=== PATIENT | male | born 1995 | race Caucasian/White ===

== ENCOUNTER 2021-08-14 14:29 | Emergency (ER) | payer OTHER, BC, SELFPAY ==
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
[2021-08-14 14:36] VITALS: BP 130/64; PULSE 100; O2SAT 98
[2021-08-14 14:41] VITALS: BP 122/81; PULSE 80; RESP 19; TEMP 36.6; O2SAT 98; BMI 28.8
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
== END 2021-08-14 16:11 | disposition home or self-care (01) ==
PROVIDERS: Emergency Provider Emergency Medicine Emergency Medical Services; PCP Internal Medicine
DX: S06.0X0A Concussion without loss of consciousness, initial encounter (principal); V43.52XA Car driver injured in collision with other type car in traffic accident, initial encounter; Y93.89 Activity, other specified; Y92.414 Local residential or business street as the place of occurrence of the external cause; Y99.8 Other external cause status
CPT/HCPCS: 70450; 72040; 72070; 72100; 72220; 99283; 99284

== ENCOUNTER 2023-04-15 11:35 | Emergency (ER) | payer BC, SELFPAY ==
--- NOTE | ~2023-04-15 | XR_ITS ---
EXAMINATION: XR KNEE, RIGHT CLINICAL INFORMATION: Knee pain after fall COMPARISON: None available. TECHNIQUE: Four views of the right knee. FINDINGS: No fracture or joint effusion. Alignment is anatomic. Joint spaces are maintained. No abnormal soft tissue calcification. XR/XR knee RT 3V IMPRESSION: Normal right knee.
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
[2023-04-15 11:44] VITALS: BP 133/83; PULSE 73; RESP 16; TEMP 36.6; O2SAT 97; BMI 34.1
--- NOTE | 2023-04-15 13:14 | ED.LOWEXIN ---
HPI - Extremity Injury (Lower) General Chief Complaint: Extremity Injury, Lower Stated Complaint: R knee injury Time Seen by Provider: 04/15/23 12:17 Related Data Allergies Allergy/AdvReac Type Severity Reaction Status Date / Time Seasonal allergies Allergy Unknown Unknown Uncoded 04/15/23 11:43 PMFSH Past Medical History Medical History Scoliosis Social History Social History Advance Directives: No Advance Directives Information Provided: No Physical Exam Vital Signs: Vital Signs: Last Vital Signs Temp 97.8 F 04/15/23 11:44 Pulse 73 04/15/23 11:44 Resp 16 04/15/23 11:44 BP 133/83 04/15/23 11:44 Pulse Ox 97 04/15/23 11:44 O2 Del Method Room Air 04/15/23 11:44 BMI result Body Mass Index 34.1 Critical Care Time Critical Care Time Critical Care Time: No Discharge Plan Discharge Clinical Impression: Right knee sprain Patient Disposition: Home, Self-Care Instructions: Knee Sprain (ED) Additional Instructions: The x-ray of your right knee did not show any fracture or dislocation. You likely have a musculoskeletal sprain/strain. Your given a dose of pain medication in the emergency department today. You are provided with an Torito wrap today to help with compression. You may take Tylenol ibuprofen as needed for discomfort. Follow up with your primary care doctor as needed. This symptoms persist or worsen please return to the emergency department. The case of an emergency call 911. Referrals: Alexis Ronquillo MD [Primary Care Provider] - Stand Alone Forms: Work/School Release Interventions: ED Discharge Assessment Last Done: 04/15/23 14:13 Discharge Date/Time: 04/15/23 14:13
== END 2023-04-15 14:13 | disposition home or self-care (01) ==
PROVIDERS: Emergency Provider Emergency Medicine; PCP Internal Medicine
DX: S83.91XA Sprain of unspecified site of right knee, initial encounter (principal); W01.0XXA Fall on same level from slipping, tripping and stumbling without subsequent striking against object, initial encounter; Y93.89 Activity, other specified; Y92.511 Restaurant or cafe as the place of occurrence of the external cause; Y99.9 Unspecified external cause status
CPT/HCPCS: 73562; 99282; 99283

== ENCOUNTER 2024-07-11 18:53 | Emergency (ER) | payer MEDICAID, SELFPAY ==
--- NOTE | 2024-07-11 19:25 | ED.GENADULT ---
HPI - General Adult General Stated complaint: leg pain Related Data Allergies Allergy/AdvReac Type Severity Reaction Status Date / Time Seasonal allergies Allergy Unknown Unknown Uncoded 04/15/23 11:43 [facility] Past Medical History Medical History Scoliosis Social History Social History Advance Directives: No Advance Directives Information Provided: No Discharge Plan Discharge Patient Disposition: Left Without Being Seen Interventions: LWBS Worksheet Last Done: 07/11/24 19:53 Discharge Date/Time: 07/11/24 19:53
--- OUTSIDE RECORDS SUMMARY | 2024-07-11 19:46 | XMS_ITS | Clinical Summary ---
Author Organization [facility] Address [address] [place] [address] Phone Care Team Providers Care Auto Body Repairman Name Role Phone Unavailable Primary Care Provider Unavailabl e Immunizations Immunization Administration Dates Next Due DTP 02/01/1995,1994,1994 DTaP 5 07/01/1999,07/18/1996 H1N1 06/05/2009 HPV, Quadrivalent 05/16/2013 Hep B, ped/adol 02/01/1995,1994,1994 Hib (PRP-T) 11/13/1995, 5,1994,09/30 IPV 07/01/1999, 5,1994,09/30 Influenza, injectable, trivalent 06/05/2009,03/29 Influenza, intranasal, quadrivalent 05/02/2013 MMR 07/01/1999,11/13/1995 Meningococcal Conj (Menactra) MCV4P 02/04/2008 Td (adult) (MBL), 2 Lf tetan us toxoid, PF, adsorbed 04/27/2007 Tdap 11/01/2011 Varicella 02/04/2008,08/27/1995 Family History Relation Name Status Comments Brother Alive Brother: Alive and well, Asthma Father Alive Father: Alive a nd well Maternal Grandfather Materna l grandfather: Sudden /RI under age 55 Maternal Grandmother Materna l grandmother: Diabetes mellitus Mother Mother: neuro f ibromytosis Other Family history of *Dental caries, Family history of *CVA/Stroke, Family history of *Heart Disease, Family history of *Sudden /RI under 55 Paternal Grandfather Paterna l grandfather: MVA, Paternal Grandmother Paterna l grandmother: Heart disease, Sister Alive Sister: Alive a nd well Social History Tobacco Use Types Packs/Day Years Used Date Smoking Tobacco: Never Comments:Never smoker Sex and Gender Information Value Date Recorded Sex Assigned at Not on file Legal Sex Male 4:43 PM EDT Gender Identity Not on file Sexual Orientation Not on file Last Filed Vital Signs Vital Sign Reading Time Taken Comments Blood Pressure 113/72 07/26/2015 12:00 AM EST Pulse 80 07/26/2015 12:00 AM EST Temperature 37.1 ??C (98.8 ??F) 07/26/2015 1 2:00 AM EST Respiratory Rate - - Oxygen Saturation - - Inhaled Oxygen Concentration - - Weight 81.1 kg (178 lb 12.8 oz) 016 12:00 AM EST Height 194.9 cm (6' 4.75 ) 07/26/2015 1 2:00 AM EST Body Mass Index 21.34 07/26/2015 12:00 AM EST Plan of Treatment Health Maintenance Due Date Last Done Comments HPV Vaccines (2 - Male 3-dose series) 06/13/2013 05/16/2013 DTaP,Tdap,and Td Vaccines (7 - Td or Tdap) 10/31/2021 11/01/2011, 04/27/2007, 07/01/1999, Additional history exists Influenza Vaccines (#1) 2023 05/02/20 13, 06/05/2009, 04/09/2007 COVID-19 Vaccine ( season) 2024 Hepatitis B Vaccines Completed 02/01/1995, 1994, 1994 HIB Vaccines Completed 11/13/1995, 10/1994, 1994, Additional history exists IPV Vaccines Completed 07/01/1999, 10/1994, 1994, Additional history exists MMR Vaccines Completed 07/01/1999, 11/13/1995 Meningococcal Vaccine Aged Out 02/04/2008 No florian elvin eligible based on patient's age to complete this topic Varicella Vaccines Completed 02/04/2008, 08/27/1995 Hepatitis A Vaccines Aged Out No long er eligible based on patient's age to complete this topic Men B Vaccine Aged Out No longer elig ible based on patient's age to complete this topic Pneumococcal Vaccine Aged Out No long er eligible based on patient's age to complete this topic
--- OUTSIDE RECORDS SUMMARY | 2024-07-11 19:46 | XMS_ITS | Encounter Summary ---
Author Organization [facility] Address [address] [place] [address] Phone Care Team Providers Care Head Of Advertising Name Role Phone Tatyana Ramirez MD Primary Care Provider Encounter Details Date Type Department Care Team (Late st Contact Info) Description 08/09/2012 Documentation [facility] [place] [address] [place] [address] Family Medicine, Physician [address] [place], [place] [phone] Social History Tobacco Use Types Packs/Day Years Used Date Smoking Tobacco: Never Assessed Sex and Gender Information Value Date Recorded Sex Assigned at Not on file Legal Sex Male 4:43 PM EDT Gender Identity Not on file Sexual Orientation Not on file documented as of this encounter Plan of Treatment Not on file documented as of this encounter Visit Diagnoses Not on filedocumented in this encounter Care Teams Head Of Advertising Relationship Specialty Start Date End Date Tatyana Ramirez MD [address] [place] [address] PCP - General 01/06/17 11/29/22 documented as of this encounter
== END 2024-07-11 19:53 | disposition left against medical advice (07) ==
PROVIDERS: Emergency Provider Emergency Medicine
DX: M79.606 Pain in leg, unspecified (principal)

== ENCOUNTER 2024-08-02 10:49 | Outpatient (AMB) | payer OTHER, MEDICAID, SELFPAY ==
--- NOTE | 2024-08-02 11:02 | A.OFFVIS_ITS ---
Vital Signs 08/02/24 11:15 Height 5 ft 8 in Weight 210 lb BMI 31.9 Intake Visit Reasons: FC- LT ankle distal tibia fx Intake Note: Ken is a 29 year old male who presents today for a new patient evaluation of left ankle fracture. Patient presented to [facility] ER on 07/13/24 however he left without being seen and followed up with [facility] the following day. He was placed in a boot after his x-ray report was in. He injured his ankle a couple of weeks prior to his ER visit, stating pain after he stepped wrong out of his work truck. Patient reports his pain is located at the medial aspect of ankle and will travel up his leg. Numbness and tingling in his foot. His pain is mostly at the end of the day. Finds some relief with elevation. Finds no relief with Motrin. Allergies Seasonal allergies Allergy (Unknown, Uncoded 08/02/24 11:15) Unknown HPI HPI FC- LT ankle distal tibia fx: Details: 29-year-old gentleman presents to the office today for an injury he sustained to his left ankle. He states he stepped off his truck when he twisted the ankle and had pain. He was seen at an emergency department where they did x-rays and he states they mentioned he had a fracture and they gave him a boot. He has been weight-bearing as tolerated. He states the pain is located along the alexander area. No pain in the ankle or foot. 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 No tenderness over the medial or lateral malleolus. No pain over the syndesmosis. He has some tenderness over the anterior tibialis. No bony tenderness over the midshaft of the tibia or proximal end of the tib-fib. Results Reviewed Results Reviewed: X-rays of the left ankle and tib-fib obtained in the office today are negative for any acute or chronic abnormalities. Ankle mortise intact. Assessment & Plan Assessment & Plan (1) Left ankle sprain: Code(s): S93.402A - Sprain of unspecified ligament of left ankle, initial encounter Category: Medical Plan: In the absence of fracture I recommend he continue using the boot weightbearing as tolerated I did offer a course of physical therapy which she declined. He will increase activities as tolerated and wean from the boot as symptoms allow. Follow up as needed. Orders: Orders XR tibia fibula LT 2V Today M79.605 - Pain in left leg XR ankle LT min 3V Today M25.572 - Pain in left ankle and joints of left foot Coding Level of Care Code New Pt Level 3 (76627) Complex EM visit Add On G2211 Diagnoses Left ankle sprain S93.402A
[2024-08-02 11:15] VITALS: BMI 31.9
--- OUTSIDE RECORDS SUMMARY | 2024-08-02 12:22 | XMS_ITS | Encounter Summary ---
Author Organization [facility] Address [address] [place] [address] Care Team Providers Care Freight Checker Name Role Phone Alexis Ronquillo Primary Care Provider [phone] Reason for Referral * Consultation (Urgent) - Authorized Specialty Diagnoses / Procedures Referred By Adela fall Referred To Contact Daniel Suresh MD [address] [place] [address] Phone: tel: fax: Referral ID Status Reason Start Date Expiration Date V isits Requested Visits Authorized [id number] Authorized 07/12/2024 01/11/2026 6 6 Reason for Visit * Reason Comments Leg Pain Encounter Details Date Type Department Care Team (Late st Contact Info) Description 07/12/2024 1:39 PM EST - 07/12/2024 4:37 PM EST Emergency [facility] Emergency Department [address] [place] [id number] Richard Hurtado MD [address] [place] [id number] Daniel Suresh MD [address] [place] [id number] Left leg pain (Primary Dx) Discharge Disposition: Left Without Being Seen (07) Social History Tobacco Use Types Packs/Day Years Used Date Smoking Tobacco: Never Smokeless Tobacco: Never Tobacco Cessation:Counseling Given: Not Answered Alcohol Use Standard Drinks/Week Comments Never 0 (1 standard drink = 0.6 oz pur e alcohol) Sex and Gender Information Value Date Recorded Sex Assigned at Male 07/12/2024 1:22 PM EST Legal Sex Male 5:48 PM EDT Gender Identity Not on file Sexual Orientation Not on file documented as of this encounter Last Filed Vital Signs Vital Sign Reading Time Taken Comments Blood Pressure 134/89 07/12/2024 1:37 PM EST Pulse 85 07/12/2024 1:37 PM EST Temperature 36.9 ??C (98.5 ??F) 07/12/2024 1:37 PM ES T Respiratory Rate 20 07/12/2024 1:37 PM EST Oxygen Saturation 97% 07/12/2024 1:37 PM EST Inhaled Oxygen Concentration - - Weight 95.3 kg (210 lb) 07/12/2024 1:37 PM EST Height 172.7 cm (5' 8 ) 07/12/2024 1:37 PM EST Body Mass Index 31.93 07/12/2024 1:37 PM EST documented in this encounter Discharge Instructions * Discharge Instructions* Richard Hurtado MD - 07/12/2024 3:09 PM EST You were seen and evaluated in the ED. Your x-ray showed no broken or dislocated bones. Please take 600mg ibuprofen with food and water every 6 hours as needed for pain relief. Please do not take any other non-steroidal antiinflammatory drugs (NSAIDS) such as Naproxen, Celebrex (celecoxib), Meloxicam or other medications also containing ibuprofen. Please do not take more than 2400mg ibuprofen in 24 hours. You can additionally take 1000mg Tylenol (acetaminophen) every 8 hours for additional pain relief. Please be sure to read the labels of any medication you are taking and confirm that it does not contain acetaminophen. If other medications contain acetaminophen, please do not take while you are taking Tylenol. Please do not take more than 3000mg Tylenol (acetaminophen) in 24 ho urs. Please follow up with your primary care doctor in the next 5-7 days. Please return to the emergency room if you have any new or concerning symptoms or injuries. * Attachments The following attachments cannot be sent through Care Everywhere. * Lower Extremity Muscle Strain Discharge Instructions (Kazakh) documented in this encounter Medications at Time of Discharge sertraline (ZOLOFT) 25 mg tablet Take 25 mg by mouth once a day. documented as of this encounter ED Notes * Richard Hurtado MD - 07/12/2024 1:20 PM EST History HPI: Chief Complaint Patient presents with ??? Leg Pain HPI This is a 28-year-old man with a past with history of anxiety/depression who presents for evaluation of right leg pain. Patient states that he works on his feet a lot and when he jumps off the back of the truck at work he often leans on his left leg. He states no traumatic injury, but states that he has been having gradually worsening pain in his left ankle and left calf. Patient states no extremity paresthesias. Patient states no previous surgery on this left leg. He states no other complaintsor injuries. Patient reports taking 2 ibuprofen pills with no alleviation of his pain. Patient reports pain has been present for the last week. He states no chest pain or dyspnea. He states no associated head strike or loss of consciousness. He states no neck pain, back pain or abdominal pain. Patient History History reviewed. No pertinent past medical history. History reviewed. No pertinent surgical history. No family history on file. Social History Tobacco Use ??? Smoking status: Never ??? Smokeless tobacco: Never Vaping Use ??? Vaping status: Never Used Substance Use Topics ??? Alcohol use: Never ??? Drug use: Never Vaping Questions Responses Vaping Use Never User Sexuality and Gender Identity Sexuality Legal Information Legal first name: Ken Legal last name: Shady Legal sex: Male Gender Identity Patient's sex assigned at : Male Organ Inventory Organs the patient currently has: Organs present at or expected at to develop: Organs surgically enhanced or constructed: Organs hormonally enhanced or developed: breasts cervix ovaries uterus vagina penis prostate testes Review of Systems REVIEW OF SYSTEMS: ROS as per HPI Physical Exam Physical Exam ED Triage Vitals [07/12/24 1337] Temp Heart Rate Resp BP SpO2 36.9 ??C (98.5 ??F) 85 20 134/89 97 % Temp Source Heart Rate Source Patient Position BP Location Set FiO2 (O2%) Temporal -- Sitting Left arm -- Physical Exam General: NAD, AOx3 Eyes: PERRL, EOMI, anicteric sclera HENT: NCAT, moist oral mucosa, trachea midline CV: RRR, 2+ bilateral DP/PT pulses Respiratory: CTAB Abdominal: soft, NTND, no focal rebound, guarding or rigidity, no palpable masses MSK: moving all extremities spontaneously, no extremity deformity, bilateral lower extremity compartments are soft with intact overlying skin, +pain with left lower extremity plantarflexion Neuro: Grossly non-focal, sensation tact light touch in bilateral lower extremities Skin: Warm, dry, scattered abrasions to the bilateral lower extremity without erythema/purulence/fluctuance, no ecchymosis to the bilateral lower extremities Medical Decision Making and ED Course MDM Differential diagnosis includes, but is not limited to strain, sprain, fracture. Patient is afebrile and hemodynamically stable on room air. Exam as above is benign and reassuring. Patient was treated supportively with 600 mg p.o. ibuprofen. I reviewed x-rays as below. On reexamination, patient is well-appearing and in no acute distress. There is no indication for further emergent evaluation in this otherwise well-appearing patient as above. Patient is provided written and verbal instructions, educational materials, recommendations for outpatient follow up, return precautions and teach back is performed. Patient states understanding and agreement with plan of care. Patient is discharged home in stable and improved condition. Management considered but not performed (medications, diagnostics or observation/admission): I considered admission, but medical evaluation is reassuring and there is no indication for hospitalization at this time Certain portions of this note were created with voice recognition software. As such, please excuse any grammatical errors or word selection errors. I did make an effort to proofread and correct this note prior to signing. If there are any questions, please feel free to contact me. ED Course as of 07/12/24 1508 MonJul 12, 2024 256 I independently reviewed and interpreted patient's x-ray of the left tibia/fibula and ankle, which demonstrates no acute fracture or dislocation [JS] ED Course User Index [JS] MD Ken Soto : 1995 CSN: [id number] Richard Hurtado MD 07/12/24 1509 documented in this encounter Miscellaneous Notes * ED Continuation of Care - Daniel Suresh MD - 07/12/2024 4:37 PM EST ED Continuation of Care 07/12/24 4:39 PM Sign out from Dr. Hurtado MDM Patient signed out to me pending discharge. Final read of the x-ray shows possible evidence of cortical defect concerning for fracture. Before I could reevaluate the patient, the patient had left without paperwork. I called the patient, received no response and left a voicemail for him. 5:17 PM Patient called back, informed of the potential broken bone. He reports living far away and will notbe able to return until tomorrow for repeat evaluation. Orthopedic referral to be placed in his disposition. Ken Caruso : 1995 CSN: [id number] documented in this encounter Plan of Treatment Scheduled Referrals Name Type Priority Associated Diagnoses Order Schedule Ambulatory referral to Ortho - All Outpatient Referral Routine Expected: 07/12/2024, Expires: 01/09/2025 documented as of this encounter Procedures * Due to [employer] law, this organization might not be sharing negative HIV tests. Procedure Name Priority Date/Time Associated Diagnosis Comments XR TIBIA FIBULA 2 VW LEFT STAT 07/12/2024 2:54 PM EST XR ANKLE 3+ VW LEFT STAT 07/12/2024 2 :53 PM EST documented in this encounter Results * Due to [employer] law, this organization might not be sharing negative HIV tests. * XR Tibia Fibula 2 vw Left (07/12/2024 2:54 PM EST) Anatomical Region Laterality Modality Lower Extremities, Lower Leg Left Rad iographic Imaging 07/12/2024 3:12 PM EST Impressions 07/12/2024 3:13 PM EST Left tibia, fibula, and ankle: There is a cortical defect of the anterior aspect of the distal tibia which could represent a fracture. If this radiology report contains a blank impression section, it is an incomplete radiology report. ??Please contact the interpreting radiologist or applicable radiology division as soon as possible to obtain the completed interpretation. ? Workstation ID: [id number] Narrative 07/12/2024 3:13 PM EST COMPARISON: ??There are no prior studies available for comparison at this time. ?? FINDINGS AND Resulting Agency Comment [id number] Procedure Note Tobias June - 07/12/2024 COMPARISON: There are no prior studies available for comparison at thistime. FINDINGS AND IMPRESSION: Left tibia, fibula, and ankle: There is a cortical defect of the anterioraspect of the distal tibia which could represent a fracture. If this radiology report contains a blank impression section, it is anincomplete radiology report. Please contact the interpreting radiologistor applicable radiology division as soon as possible to obtain thecompleted interpretation. Workstation ID: [id number] Richard Hurtado MD IMG XR PROCEDURES Final Result * XR Ankle 3+ vw Left (07/12/2024 2:53 PM EST) Anatomical Region Laterality Modality Lower Extremities, Ankle Left Radiogr aphic Imaging 07/12/2024 3:12 PM EST Impressions 07/12/2024 3:13 PM EST Left tibia, fibula, and ankle: There is a cortical defect of the anterior aspect of the distal tibia which could represent a fracture. If this radiology report contains a blank impression section, it is an incomplete radiology report. ??Please contact the interpreting radiologist or applicable radiology division as soon as possible to obtain the completed interpretation. ? Workstation ID: [id number] Narrative 07/12/2024 3:13 PM EST COMPARISON: ??There are no prior studies available for comparison at this time. ?? FINDINGS AND Resulting Agency Comment [id number] Procedure Note Tobias June - 07/12/2024 COMPARISON: There are no prior studies available for comparison at thistime. FINDINGS AND IMPRESSION: Left tibia, fibula, and ankle: There is a cortical defect of the anterioraspect of the distal tibia which could represent a fracture. If this radiology report contains a blank impression section, it is anincomplete radiology report. Please contact the interpreting radiologistor applicable radiology division as soon as possible to obtain thecompleted interpretation. Workstation ID: [id number] Richard Hurtado MD IMG XR PROCEDURES Final Result documented in this encounter Visit Diagnoses Diagnosis Left leg pain- Primary Pain in soft tissues of limb documented in this encounter Administered Medications Inactive Administered Medications - up to 3 most recent administrations Medication Order MAR Action Action Date Dose Rate Site ibuprofen (MOTRIN) tablet 600 mg 600 mg, oral, Once, On Mon07/12/24 at 1400, 1 dose Given 07/12/2024 2:07 PM EST 600 mg documented in this encounter Active and Recently Administered Medications Times are shown in EST. Scheduled Medication Order 07/10/2024 07/11/2024 07/12/2024 ibuprofen (MOTRIN) tablet 600 mg (COMPLETED) 600 mg, oral, Once, On Mon07/12/24 at 1400, 1 dose 1407 (Given - Provid er: Bree Sims RN) documented in this encounter Care Teams Freight Checker Relationship Specialty Start Date End Date Alexis Ronquillo [address] [place] [id number] PCP - General Internal Medicine 07/12/24 documented as of this encounter
--- OUTSIDE RECORDS SUMMARY | 2024-08-02 12:22 | XMS_ITS | Encounter Summary ---
Author Organization [facility] Address [address] [place] [address] Phone Care Team Providers Care Gauger Chief Name Role Phone Tatyana Ramirez MD Primary Care Provider Encounter Details Date Type Department Care Team (Late st Contact Info) Description 08/09/2012 Documentation [facility] [place] Family Medicine [address] [place] [address] Family Medicine, Physician [address] [place], [place] [phone] Social History Tobacco Use Types Packs/Day Years [...] on filedocumented in this encounter Care Teams Gauger Chief Relationship Specialty Start Date End Date Tatyana Ramirez MD [address] [place] [address] PCP - General 01/06/17 11/29/22 documented as of this encounter
--- OUTSIDE RECORDS SUMMARY | 2024-08-02 12:23 | XMS_ITS | Referral Summary ---
Author Organization [facility] Address [address] [place] [address] Care Team Providers Care Enroller Name Role Phone Alexis Ronquillo Primary Care Provider [phone] Encounters Date Type Department Care Team Description 07/13/2024 4:51 AM EST - 07/13/2024 5:46 AM EST Emergency [facility] Emergency Department [address] [place] [address] Gonzalo Barron MD Acute left ankle pain (Primary Dx); Closed fracture of left ankle, initial encounter Discharge Disposition: Home or Self Care (01) 07/12/2024 1:39 PM EST - 07/12/2024 4:37 PM EST Emergency [facility] Emergency Department [address] [place] [address] Richard Hurtado MD Roy, Rahul D, MD Left leg pain (Primary Dx) Discharge Disposition: Left Without Being Seen (07) from Last 3 Months Allergies No known active allergies Medications sertraline (ZOLOFT) 25 mg tablet Take 25 mg by mouth once a day. Active Social History Tobacco Use Types Packs/Day Years [...] Sign Reading Time Taken Comments Blood Pressure 136/79 07/13/2024 5:00 AM EST Pulse 83 07/13/2024 5:00 AM EST Temperature 36.6 ??C (97.8 ??F) 07/13/2024 5:00 AM ES T Respiratory Rate 18 07/13/2024 5:00 AM EST Oxygen Saturation 98% 07/13/2024 5:00 AM EST Inhaled Oxygen Concentration - - Weight 95.3 kg (210 lb) 07/13/2024 5:00 AM EST Height 172.7 cm (5' 8 ) 07/13/2024 5:00 AM EST Body Mass Index 31.93 07/13/2024 5:00 AM EST Plan of Treatment Not on file Procedures * Due to [place] [employer] law, this organization might not be sharing negative HIV tests. Procedure Name Priority Date/Time Associated Diagnosis Comments ED SPLINT APPLICATION Routine 07/13/2024 4:30 AM EST XR TIBIA FIBULA 2 VW LEFT STAT 07/12/2024 2:54 PM EST XR ANKLE 3+ VW LEFT STAT 07/12/2024 2 :53 PM EST from Last 3 Months Results * Due to [place] [employer] law, this organization might not be sharing negative HIV tests. * Splint Application - ED (07/13/2024 4:30 AM EST) Narrative Gonzalo Barron MD - 07/13/2024 4:30 AM EST Gonzalo Barron MD ? 07/13/2024 ??8:12 AM Splint Application - ED Date/Time: 07/13/2024 4:30 AM Performed by: Gonzalo Barron MD Authorized by: Gonzalo Barron MD ?? Consent: ? Patient identity confirmed: Verbally ? Verbal consent obtained: Yes ? Risk and benefits discussed: Yes ? Patient states understanding of procedure being performed: Yes [place] Protocol: ? Procedure consent matches procedure scheduled: N/A ? Relevant tests/ Imaging studies available/reviewed: Yes ? Immediately prior to the procedure a time out was called: N/A Pre-procedure details: ??Sensation: ??Normal ??Skin color: ??Warm and well-perfused Procedure details: ??Laterality: ??Left ??Location: ??Ankle ??Ankle: ??L ankle ??Splint type: Short walking boot. ??Supplies: ??Prefabricated splint Post-procedure details: ??Pain: ??Unchanged ??Sensation: ??Normal ??Skin color: ??Warm and well-perfused ??Patient tolerance of procedure: ??Tolerated well, no immediate complications Comments: ?? MD supervised splint--Prefabricated walking boot applied by assistant technician with no immediate complication. As attending physician, I certify that I was physically present and supervised the porter/critical portion of the above procedure. us Gonzalo Barron MD IN CLINIC/BEDSIDE ORDERABLES Fi nal Result * XR Tibia Fibula 2 vw Left [...] obtain the completed interpretation. ? Workstation ID: [id number] Narrative 07/12/2024 3:13 PM EST COMPARISON: ??There are no prior studies available for comparison at this time. ?? FINDINGS AND Resulting Agency Comment [id number] Procedure Note Tobias June - 07/12/2024 COMPARISON: [...] possible to obtain thecompleted interpretation. Workstation ID: [id number] Richard Hurtado MD IMG XR PROCEDURES Final [...] obtain the completed interpretation. ? Workstation ID: [id number] Narrative 07/12/2024 3:13 PM EST COMPARISON: ??There are no prior studies available for comparison at this time. ?? FINDINGS AND Resulting Agency Comment [id number] Procedure Note Tobias June - 07/12/2024 COMPARISON: [...] possible to obtain thecompleted interpretation. Workstation ID: [id number] Richard Hurtado MD IMG XR PROCEDURES Final Result from Last [address] [facility] Care Teams Enroller Relationship Specialty Start Date End Date Alexis Ronquillo [address] [place] [address] PCP - General Internal Medicine 07/12/24
--- OUTSIDE RECORDS SUMMARY | 2024-08-02 12:23 | XMS_ITS | Encounter Summary ---
Author Organization [facility] Address [address] [place] [address] Care Team Providers Care Crew Chief Name Role Phone Alexis Ronquillo Primary Care Provider [phone] Reason for Referral * Consultation (Urgent) - Authorized Specialty Diagnoses / Procedures Referred By Adela t Referred To Contact Orthopaedic Surgery Gonzalo Barron MD [address] [place] [address] Phone: tel: fax: [address] Orthopedic Department [address] [address] Phone: tel: fax: Referral ID Status Reason Start Date Expiration Date V isits Requested Visits Authorized [id number] Authorized 07/13/2024 01/12/2026 6 6 Reason for Visit * Reason Comments Ankle Pain Encounter Details Date Type Department Care Team (Late st Contact Info) Description 07/13/2024 4:51 AM EST - 07/13/2024 5:46 AM EST Emergency [facility] Emergency Department [address] [place] [address] Gonzalo Barron MD [address] [place] [address] Acute left ankle pain (Primary Dx); Closed fracture of left ankle, initial encounter Discharge Disposition: Home or Self Care () Social History Tobacco Use Types Packs/Day Years Used Date Smoking Tobacco: Never Smokeless Tobacco: Never Alcohol Use Standard Drinks/Week Comments Never 0 [...] Mass Index 31.93 07/13/2024 5:00 AM EST documented in this encounter Discharge Instructions * Discharge Instructions* Gonzalo Barron MD - 07/13/2024 5:26 AM EST You were seen in the emergency department for left ankle pain. We reviewed your x-rays that were obtained yesterday, which showed: There is a cortical defect of the anterior aspect of the distal tibia which could represent a fracture. You reported no clear preceding trauma/injury and therefore it is somewhat unclear if this is an acute fracture versus a subacute injury/anatomic variant. You have been provided with a walking boot and crutches. You should limit weightbearing until you follow-up in orthopedic clinic for further evaluation. You can take Tylenol (acetaminophen) and ibuprofen for your discomfort. You can take 500-1000 mg ofTylenol every 8 hours. Never take more than 4000 mg of Tylenol in 24 hours. Do not combine with other medications such as ovym-sfk-zpksgot cold medications that often contain acetaminophen. If you donot have any kidney problems, you can take 400-600 mg of ibuprofen every 6 hours. Always take with food. At this time you are safe to return home. Please call your primary care physician and orthopedics clinic within the next business day to schedule a follow-up appointment. You must return to the emergency department for worsening symptoms, including fever, chills, chest pain, shortness of breath, nausea, vomiting, weakness, or any other concerns. * Attachments The following attachments cannot be sent through Care Everywhere. * Ankle Fracture Discharge Instructions (Bulgarian) documented in this encounter Medications at Time of Discharge sertraline (ZOLOFT) 25 mg tablet Take 25 mg by mouth once a day. documented as of this encounter ED Notes * Gonzalo Barron MD - 07/13/2024 4:30 AM EST History HPI: Chief Complaint Patient presents with ??? Ankle Pain HPI Patient is a 28-year-old male, history of anxiety/depression, who presents with concern for left ankle pain, abnormal ankle x-ray. Patient reports that he has had several weeks of left lower leg/ankle pain, worse with movement, improved with rest. No definite preceding trauma/injury. Patient was seen in the [place] ED yesterday, x-rays performed, left prior to receiving paperwork, subsequent over read showed concern for cortical irregularity to the anterior aspect of the distal tibia which could represent a fracture, called back to the ED. Patient reports persistent mild left ankle/leg pain. No weakness/numbness/tingling. No fevers or chills. No history of VTE. Patient History No past medical history on file. No past surgical history on file. No family history on file. Social History [...] testes Review of Systems REVIEW OF SYSTEMS: Relevant review of systems as noted in HPI Physical Exam Physical Exam ED Triage Vitals [07/13/24 0500] Temp Heart Rate Resp BP SpO2 36.6 ??C (97.8 ??F) 83 18 136/79 98 % Temp Source Heart Rate Source Patient Position BP Location Set FiO2 (O2%) Oral Pulse Oximeter Sitting Right arm -- Physical Exam Constitutional: In no acute distress HEENT: Normocephalic, atraumatic, Extraocular muscles intact Resp/Chest: Normal work of breathing Cardiovascular: Warm and well-perfused Abd: Nondistended Musculoskeletal: No deformity or edema. Left lower extremity with no pain to the knee, mild diffusediscomfort to the left lower leg/ankle without point tenderness, no tenderness to the foot/fifth metatarsal, flexion/extension and strength/sensation intact throughout. Skin: Warm and dry Neuro: Alert and interactive. Moving all extremities. Psych: Appropriate mood/mentation Medical Decision Making and ED Course MDM Patient presents with left ankle pain, abnormal x-ray. Reviewed patient's records from [facility], including x-rays of the left tib-fib and ankle that were obtained yesterday, notable for cortical defect of the anterior aspect of the distal tibia which could represent a fracture. Differential includes strain, sprain, stress fracture, bony injury, among others. It is certainly possible that patient has a small fracture of the distal tibia, though he has no clear preceding trauma and on my review of imaging the cortical irregularity appears to be quite mild. Less likely DVT. Doubt metabolic derangement or infectious process. Will provide with walking boot and crutches. Will discharge with recommendation for symptomatic management, outpatient follow-up with primary care provider, referral to ortho. Discussed findings and plan with patient, who verbalized understanding and agreement. Advised of return precautions. Medical Decision Making External records reviewed & findings: Reviewed patient's records through [facility], including x-rays of the left tib-fib and ankle that were obtained yesterday, notable for cortical defect of the anterior aspect of the distal tibia which could represent a fracture. Independent interpretation of studies: Left ankle x-ray, per ED course Consideration of tests not performed: Bloodwork not indicated as patient is without significant systemic symptoms and reassuring examination. Consideration of Rx not prescribed: Opioid prescription not indicated as patient's pain well controlled with other measures. ED Course as of 07/15/242045 Sat Jul 13, 2024 0450 07/12/2024 XR Tibia Fibula 2 vw Left XR Ankle 3+ vw Left IMPRESSION: Left tibia, fibula, and ankle: There is a cortical defect of the anterior aspect of the distal tibia which could represent a fracture. [DS] 0451 I performed an independent interpretation of the left ankle x-ray from 07/12/2024. My interpretation of the left ankle x-ray is that there is a subtle cortical irregularity on the distal end of the tibia, which may represent nondisplaced fracture versus anatomic variant [DS] ED Course User Index [DS] MD Estuardo Ngargelia Caruso : 1995 CSN: [id number] Gonzalo Barron MD 07/15/242047 documented in this encounter Miscellaneous Notes * ED Procedure Note - Gonzalo Barron MD - 07/13/2024 4:30 AM ESTAssociated Order(s): Splint Application - ED Procedure Splint Application - ED Date/Time: 07/13/2024 4:30 AM Performed by: Gonzalo Barron MD Authorized by: Gonzalo Barron MD Consent: Patient identity confirmed: Verbally Verbal consent obtained: Yes Risk and benefits discussed: Yes Patient states understanding of procedure being performed: Yes [place] Protocol: Procedure consent matches procedure scheduled: N/A Relevant tests/ Imaging studies available/reviewed: Yes Immediately prior to the procedure a time out was called: N/A Pre-procedure details: Sensation: Normal Skin color: Warm and well-perfused Procedure details: Laterality: Left Location: Ankle Ankle: L ankle Splint type: Short walking boot. Supplies: Prefabricated splint Post-procedure details: Pain: Unchanged Sensation: Normal Skin color: Warm and well-perfused Patient tolerance of procedure: Tolerated well, no immediate complications Comments: supervised splint--Prefabricated walking boot applied by pollution control technician with no immediate complication. As attending physician, I certify that I was physically present and supervised the porter/critical portion of the above procedure. Ken Caruso : 1995 [facility]: [id number] Gonzalo Barron MD 07/13/24 0812 documented in this encounter Plan of Treatment Scheduled Referrals Name Type Priority Associated Diagnoses Order Schedule Ambulatory referral to Ortho - All Outpatient Referral Routine Expected: 07/13/2024, Expires: 01/10/2025 documented as of this encounter Procedures * Due to [place] law, this organization might not be sharing negative HIV tests. Procedure Name Priority Date/Time Associated Diagnosis Comments ED SPLINT APPLICATION Routine 07/13/2024 4:30 AM EST documented in this encounter Results * Due to [place] law, this organization might not be sharing [...] states understanding of procedure being performed: Yes [place] Protocol: ? Procedure consent matches procedure scheduled: [...] ??Tolerated well, no immediate complications Comments: ?? supervised splint--Prefabricated walking boot applied by pollution control technician with no immediate complication. As attending physician, I certify that I was physically present and supervised the porter/critical portion of the above procedure. us Gonzalo Barron MD IN CLINIC/BEDSIDE ORDERABLES Fi nal Result documented in this encounter Visit Diagnoses Diagnosis Acute left ankle pain- Primary Closed fracture of left ankle, initial encounter documented in this encounter Care Teams Crew Chief Relationship Specialty Start Date End Date JaimeDelonte johnchriss [address] [place] [id number] PCP - General Internal Medicine 07/12/24 documented as of this encounter
--- OUTSIDE RECORDS SUMMARY | 2024-08-02 12:23 | XMS_ITS | Clinical Summary ---
Author Organization [facility] Address [address] [place] [address] Care Team Providers Care Accredited Legal Secretary Name Role Phone Alexis Ronquillo Primary Care Provider [phone] Allergies No known active allergies Medications sertraline (ZOLOFT) 25 mg tablet Take 25 mg by mouth once a day. Active Encounters Date Type Department Care Team Description 07/13/2024 4:51 AM EST - 07/13/2024 5:46 AM EST Emergency [facility] Emergency Department [address] [place] [address] Gonzalo Barron MD Acute left ankle pain (Primary Dx); Closed fracture of left ankle, initial encounter Discharge Disposition: Home or Self Care (01) 07/12/2024 1:39 PM EST - 07/12/2024 4:37 PM EST Emergency [facility] Emergency Department [address] [place] [id number] Richard Hurtado MD Roy, Rahul D, MD Left leg pain (Primary Dx) Discharge Disposition: Left Without Being Seen (07) from Last 3 Months Social History Tobacco Use Types Packs/Day Years [...] 07/13/2024 5:00 AM EST Plan of Treatment Health Maintenance Due Date Last Done Comments HIV Screening 1995 Hepatitis C Screening 1995 COVID-19 Vaccine ( season) 2024 Influenza Vaccine (#1) 2024 3, 05/02/2013, 06/05/2009, Additional history exists Alcohol/Substance Use Screening 05/29/2024 Depression Screening and Follow-Up 05/29/2024 Social Drivers of Health Annual Screening 05/29/2024 DTaP,Tdap,and Td Vaccines (8 - Td or Tdap) 01/08/2032 01/07/2022, 11/01/2011, 04/27/2007, Additional history exists RSV Vaccine (60+ years old and patients) (1 - 1-dose 75+ series) 2069 Hepatitis B Vaccines Completed 02/01/1995, 1995, 1995 Varicella Vaccines Completed 02/04/2008, 08/27/1995 Pneumococcal Vaccine: Pediatric (0-5 Years) and At-Risk Patients (6-50 Years) Aged Out No longer eligible based on patient's age to complete this topic Procedures * Due to [place] state law, this organization might not be sharing negative HIV tests. Procedure Name Priority Date/Time Associated Diagnosis Comments ED SPLINT APPLICATION Routine 07/13/2024 4:30 AM EST XR TIBIA FIBULA 2 VW LEFT STAT 07/12/2024 2:54 PM EST XR ANKLE 3+ VW LEFT STAT 07/12/2024 2 :53 PM EST from Last 3 Months Results * Due to [place] state law, this organization might not be sharing negative HIV tests. * Splint Application - ED (07/13/2024 4:30 AM EST) Gonzalo Sterling MD - 07/13/2024 4:30 AM EST Gonzalo Barron MD ? 07/13/2024 ??8:12 AM Splint Application - ED Date/Time: 07/13/2024 4:30 AM Performed by: Gonzalo Barron MD Authorized by: Gonzalo Barron MD ?? Consent: ? Patient identity confirmed: Verbally ? Verbal consent obtained: Yes ? Risk and benefits discussed: Yes ? Patient states understanding of procedure being performed: Yes [place] Protocol: ? Procedure consent matches procedure scheduled: [...] ?? supervised splint--Prefabricated walking boot applied by electronic test technician with no immediate complication. As attending [...] obtain the completed interpretation. ? Workstation ID: [id number] Narrative 07/12/2024 3:13 PM EST COMPARISON: ??There are no prior studies available for comparison at this time. ?? FINDINGS AND Resulting Agency Comment [id number] Procedure Note Tobias June - 07/12/2024 COMPARISON: [...] possible to obtain thecompleted interpretation. Workstation ID: [id number] us Richard Hurtado MD IMG XR PROCEDURES [...] obtain the completed interpretation. ? Workstation ID: [id number] Narrative 07/12/2024 3:13 PM EST COMPARISON: ??There are no prior studies available for comparison at this time. ?? FINDINGS AND Resulting Agency Comment [id number] Procedure Note Tobias June - 07/12/2024 COMPARISON: [...] possible to obtain thecompleted interpretation. Workstation ID: [id number] us Richard Hurtado MD IMG XR PROCEDURES Final Result from Last 3 Months Insurance [facility] Care Teams Accredited Legal Secretary Relationship Specialty Start Date End Date Alexis Ronquillo [address] [place] [phone] PCP - General Internal Medicine 07/12/24
--- OUTSIDE RECORDS SUMMARY | 2024-08-02 12:23 | XMS_ITS | Encounter Summary ---
Author Organization [facility] Address [address] [place] [address] Phone Care Team Providers Care Commercial Internship Name Role Phone Tatyana Ramirez MD Primary Care Provider Encounter Details Date Type Department Care Team (Late st Contact Info) Description 01/12/2017 Conversion Encounter [facility] [place] [address] [place] [address] Social History Tobacco Use Types Packs/Day Years [...] on filedocumented in this encounter Care Teams Commercial Internship Relationship Specialty Start Date End Date Tatyana Ramirez MD [address] [place] [address] PCP - General 01/06/17 11/29/22 documented as of this encounter
--- OUTSIDE RECORDS SUMMARY | 2024-08-02 12:23 | XMS_ITS | Clinical Summary ---
Author Organization [facility] Address [address] [place] [address] Phone Care Team Providers Care Lamp Shade Assembler Name Role Phone Unavailable Primary Care Provider [...] well Maternal Grandfather Materna l grandfather: Sudden /[place] under age 55 Maternal Grandmother Materna l grandmother: Diabetes mellitus Mother Mother: neuro f ibromytosis Other Family history of *Dental caries, Family history of *CVA/Stroke, Family history of *Heart Disease, Family history of *Sudden /NC under 55 Paternal Grandfather Paterna l grandfather: [...]
== END 2024-08-02 11:58 | disposition home or self-care (01) ==
PROVIDERS: Visit Provider Physician Assistant
DX: S93.402A Sprain of unspecified ligament of left ankle, initial encounter (principal)
CPT/HCPCS: 99203

== ENCOUNTER 2024-08-02 11:25 | Outpatient (REF) | payer OTHER, MEDICAID, SELFPAY ==
--- NOTE | ~2024-08-02 | XR_ITS ---
EXAMINATION: XR ANKLE, LEFT CLINICAL INFORMATION: M25.572 - Pain in left ankle and joints of left foot COMPARISON: None available. TECHNIQUE: AP, lateral, and mortise views of the left ankle. FINDINGS: No fracture. Alignment is anatomic. No erosions. Joint spaces are maintained. Mild lateral malleolar soft tissue swelling. XR/XR ankle LT min 3V IMPRESSION: A lateral malleolar soft tissue swelling. No visible acute fracture or dislocation. Electronically signed by: Rogerio Dubois MD 08/02/2024 03:00 PM RA
--- NOTE | ~2024-08-02 | XR_ITS ---
EXAMINATION: Left tibia and fibula 2 views. CLINICAL INDICATION: Pain in left leg. COMPARISON: None. FINDINGS: 2 views of left lower leg reveals intact left tibia and fibula with no bony cortex or bone marrow abnormality. No acute fracture or lytic process. The soft tissues are normal. XR/XR tibia fibula LT 2V IMPRESSION: Normal left tibia and fibula exam. Electronically signed by: Rogerio Dubois MD 08/02/2024 02:57 PM EST
--- OUTSIDE RECORDS SUMMARY | 2024-08-02 13:18 | XMS_ITS | Clinical Summary ---
Author Organization [facility] Address [address] [place] [address] Phone Care Team Providers Care Atmospheric Scientist Name Role Phone Unavailable Primary Care Provider [...] well Maternal Grandfather Materna l grandfather: Sudden /SD under age 55 Maternal Grandmother Materna l grandmother: Diabetes mellitus Mother Mother: neuro f ibromytosis Other Family history of *Dental caries, Family history of *CVA/Stroke, Family history of *Heart Disease, Family history of *Sudden /SD under 55 Paternal Grandfather Paterna l grandfather: [...]
--- OUTSIDE RECORDS SUMMARY | 2024-08-02 13:18 | XMS_ITS | Encounter Summary ---
Author Organization [facility] Address [address] [place] [address] Phone Care Team Providers Care After School Counselor Name Role Phone Tatyana Ramirez MD Primary Care Provider Encounter Details Date Type Department Care Team (Late st Contact Info) Description 01/12/2017 Conversion Encounter [facility] [place] [address] [place] [address] Social History Tobacco Use Types Packs/Day Years [...] on filedocumented in this encounter Care Teams After School Counselor Relationship Specialty Start Date End Date Tatyana Ramirez MD [address] [place] [address] PCP - General 01/06/17 11/29/22 documented as of this encounter
--- OUTSIDE RECORDS SUMMARY | 2024-08-02 13:18 | XMS_ITS | Encounter Summary ---
Author Organization [facility] Address [address] [place] [address] Care Team Providers Care Veterinary Technology Instructor Name Role Phone Alexis Ronquillo Primary Care Provider [phone] Reason for Referral * Consultation (Urgent) - Authorized Specialty Diagnoses / Procedures Referred By Adela t Referred To Contact Orthopaedic Surgery Gonzalo Barron MD [address] [place] [address] Phone: tel: fax: [address] Orthopedic Department [address] [address] Phone: tel: fax: Referral ID Status Reason Start Date Expiration Date V isits Requested Visits Authorized [id number] Authorized 07/13/2024 01/12/2026 6 6 Reason for Visit * Reason Comments Ankle Pain Encounter Details Date Type Department Care Team (Late st Contact Info) Description 07/13/2024 4:51 AM EST - 07/13/2024 5:46 AM EST Emergency [facility] Emergency Department [address] [place] [phone] Gonzalo Barron MD [address] [place] [phone] Acute left ankle pain (Primary Dx); Closed [...] not combine with other medications such as lopb-dnl-zuchsdz cold medications that often contain acetaminophen. If [...] Care Everywhere. * Ankle Fracture Discharge Instructions (Belarusian) documented in this encounter Medications at Time [...] preceding trauma/injury. Patient was seen in the [place] ED yesterday, x-rays performed, left prior to [...] pain, abnormal x-ray. Reviewed patient's records from [facility], including x-rays of the left tib-fib [...] reviewed & findings: Reviewed patient's records through [facility], including x-rays of the left tib-fib [...] MD Estuardo Ngargelia Caruso : 1995 CSN: [id number] Gonzalo Barron MD 07/15/242047 documented in this [...] states understanding of procedure being performed: Yes [place] Protocol: Procedure consent matches procedure scheduled: N/A [...] Comments: supervised splint--Prefabricated walking boot applied by physical science technician with no immediate complication. As attending physician, I certify that I was physically present and supervised the porter/critical portion of the above procedure. Ken Caruso : 1995 [facility]: [id number] Gonzalo Barron MD 07/13/24 0812 documented in this encounter Plan of Treatment Scheduled Referrals Name Type Priority Associated Diagnoses Order Schedule Ambulatory referral to Ortho - All Outpatient Referral Routine Expected: 07/13/2024, Expires: 01/10/2025 documented as of this encounter Procedures * Due to [place] [employer] law, this organization might not be sharing negative HIV tests. Procedure Name Priority Date/Time Associated Diagnosis Comments ED SPLINT APPLICATION Routine 07/13/2024 4:30 AM EST documented in this encounter Results * Due to [place] [employer] law, this organization might not be sharing [...] states understanding of procedure being performed: Yes [place] Protocol: ? Procedure consent matches procedure scheduled: [...] ?? supervised splint--Prefabricated walking boot applied by physical science technician with no immediate complication. As attending physician, I certify that I was physically present and supervised the porter/critical portion of the above procedure. us Gonzalo Barron MD IN CLINIC/BEDSIDE ORDERABLES Fi nal Result documented in this encounter Visit Diagnoses Diagnosis Acute left ankle pain- Primary Closed fracture of left ankle, initial encounter documented in this encounter Care Teams Veterinary Technology Instructor Relationship Specialty Start Date End Date JaimeDelonte johnchriss [address] [place] [id number] PCP - General Internal Medicine 07/12/24 documented as of this encounter
--- OUTSIDE RECORDS SUMMARY | 2024-08-02 13:18 | XMS_ITS | Referral Summary ---
Author Organization [facility] Address [address] [place] [address] Care Team Providers Care Lab Associate Name Role Phone Alexis Ronquillo Primary Care Provider [phone] Encounters Date Type Department Care Team Description 07/13/2024 4:51 AM EST - 07/13/2024 5:46 AM EST Emergency [facility] Emergency Department [address] [place] [id number] Gonzalo Barron MD Acute left ankle pain (Primary Dx); Closed fracture of left ankle, initial encounter Discharge Disposition: Home or Self Care (01) 07/12/2024 1:39 PM EST - 07/12/2024 4:37 PM EST Emergency [facility] Emergency Department [address] [place] [phone] Richard Hurtado MD Roy, Rahul D, MD [...] Not on file Procedures * Due to [place] [employer] law, this organization might not be sharing negative HIV tests. Procedure Name Priority Date/Time Associated Diagnosis Comments ED SPLINT APPLICATION Routine 07/13/2024 4:30 AM EST XR TIBIA FIBULA 2 VW LEFT STAT 07/12/2024 2:54 PM EST XR ANKLE 3+ VW LEFT STAT 07/12/2024 2 :53 PM EST from Last 3 Months Results * Due to [place] [employer] law, this organization might not be sharing [...] states understanding of procedure being performed: Yes [place] Protocol: ? Procedure consent matches procedure scheduled: [...] MD supervised splint--Prefabricated walking boot applied by maintenance parts technician with no immediate complication. As attending [...] obtain the completed interpretation. ? Workstation ID: [id number] Narrative 07/12/2024 3:13 PM EST COMPARISON: ??There are no prior studies available for comparison at this time. ?? FINDINGS AND Resulting Agency Comment [id number] Procedure Note Tobias June - 07/12/2024 COMPARISON: [...] possible to obtain thecompleted interpretation. Workstation ID: [id number] Richard Hurtado MD IMG XR PROCEDURES Final [...] obtain the completed interpretation. ? Workstation ID: [id number] Narrative 07/12/2024 3:13 PM EST COMPARISON: ??There are no prior studies available for comparison at this time. ?? FINDINGS AND Resulting Agency Comment [id number] Procedure Note Tobias June - 07/12/2024 COMPARISON: [...] possible to obtain thecompleted interpretation. Workstation ID: [id number] Richard Hurtado MD IMG XR PROCEDURES Final Result from Last 3 Months Insurance [facility] Care Teams Lab Associate Relationship Specialty Start Date End Date Alexis Ronquillo [address] [place] [phone] PCP - General Internal Medicine 07/12/24
--- OUTSIDE RECORDS SUMMARY | 2024-08-02 13:18 | XMS_ITS | Encounter Summary ---
Author Organization [facility] Address [address] [place] [address] Care Team Providers Care Road Crossing Guard Name Role Phone Alexis Ronquillo Primary Care Provider [phone] Reason for Referral * Consultation (Urgent) - Authorized Specialty Diagnoses / Procedures Referred By Adela fall Referred To Contact Daniel Suresh MD [address] [place] [phone] Phone: tel: fax: Referral ID Status Reason Start Date Expiration Date V isits Requested Visits Authorized [id number] Authorized 07/12/2024 01/11/2026 6 6 Reason for Visit * Reason Comments Leg Pain Encounter Details Date Type Department Care Team (Late st Contact Info) Description 07/12/2024 1:39 PM EST - 07/12/2024 4:37 PM EST Emergency [facility] Emergency Department [address] [place] [address] Richard Hurtado MD [address] [place] [id number] Daniel Suresh MD [address] [place] [phone] Left leg pain (Primary Dx) Discharge Disposition: [...] * Lower Extremity Muscle Strain Discharge Instructions (Turkmen) documented in this encounter Medications at Time [...] as of 07/12/24 1508 MonJul 12, 2024 968 I independently reviewed and interpreted patient's x-ray of the left tibia/fibula and ankle, which demonstrates no acute fracture or dislocation [JS] ED Course User Index [JS] MD Ken Soto : 1995 CSN: [id number] Richard Hurtado MD 07/12/24 1509 documented in [...] his disposition. Ken Caruso : 1995 CSN: [id number] documented in this encounter Plan of Treatment Scheduled Referrals Name Type Priority Associated Diagnoses Order Schedule Ambulatory referral to Ortho - All Outpatient Referral Routine Expected: 07/12/2024, Expires: 01/09/2025 documented as of this encounter Procedures * Due to [place] [employer] law, this organization might not be sharing negative HIV tests. Procedure Name Priority Date/Time Associated Diagnosis Comments XR TIBIA FIBULA 2 VW LEFT STAT 07/12/2024 2:54 PM EST XR ANKLE 3+ VW LEFT STAT 07/12/2024 2 :53 PM EST documented in this encounter Results * Due to [place] [employer] law, this organization might not be sharing [...] obtain the completed interpretation. ? Workstation ID: [id number] Narrative 07/12/2024 3:13 PM EST COMPARISON: ??There are no prior studies available for comparison at this time. ?? FINDINGS AND Resulting Agency Comment [id number] Procedure Note Tobias June - 07/12/2024 COMPARISON: [...] possible to obtain thecompleted interpretation. Workstation ID: [id number] Richard Hurtado MD IMG XR PROCEDURES Final [...] obtain the completed interpretation. ? Workstation ID: [id number] Narrative 07/12/2024 3:13 PM EST COMPARISON: ??There are no prior studies available for comparison at this time. ?? FINDINGS AND Resulting Agency Comment [id number] Procedure Note Tobias June - 07/12/2024 COMPARISON: [...] possible to obtain thecompleted interpretation. Workstation ID: [id number] us Richard Hurtado MD IMG XR PROCEDURES [...] RN) documented in this encounter Care Teams Road Crossing Guard Relationship Specialty Start Date End Date Alexis Ronquillo [address] [place] [phone] PCP - General Internal Medicine 07/12/24 documented as of this encounter
--- OUTSIDE RECORDS SUMMARY | 2024-08-02 13:18 | XMS_ITS | Encounter Summary ---
Author Organization [facility] Address [address] [place] [address] Phone Care Team Providers Care Hot Air Furnace Installer And Repairer Name Role Phone Tatyana Ramirez MD Primary Care Provider [phone] Encounter Details Date Type Department Care Team (Late st Contact Info) Description 08/09/2012 Documentation [facility] [place] [address] [place] [address] Family Medicine, Physician [address] [place], [place] [id number] Social History Tobacco Use Types Packs/Day Years [...] on filedocumented in this encounter Care Teams Hot Air Furnace Installer And Repairer Relationship Specialty Start Date End Date Tatyana Ramirez MD [address] [place] [address] PCP - General 01/06/17 11/29/22 documented as of this encounter
--- OUTSIDE RECORDS SUMMARY | 2024-08-02 13:18 | XMS_ITS | Clinical Summary ---
Author Organization [facility] Address [address] [place] [address] Care Team Providers Care Strip Cutter Name Role Phone Alexis Ronquillo Primary Care Provider [phone] Allergies No known active allergies Medications sertraline (ZOLOFT) 25 mg tablet Take 25 mg by mouth once a day. Active Encounters Date Type Department Care Team Description 07/13/2024 4:51 AM EST - 07/13/2024 5:46 AM EST Emergency [facility] Emergency Department [address] [place] [phone] Gonzalo Barron MD Acute left ankle pain (Primary Dx); Closed fracture of left ankle, initial encounter Discharge Disposition: Home or Self Care (01) 07/12/2024 1:39 PM EST - 07/12/2024 4:37 PM EST Emergency [facility] Emergency Department [address] [place] [phone] Richard Hurtado MD Roy, Rahul D, MD [...] complete this topic Procedures * Due to [place] state law, this organization might not be sharing negative HIV tests. Procedure Name Priority Date/Time Associated Diagnosis Comments ED SPLINT APPLICATION Routine 07/13/2024 4:30 AM EST XR TIBIA FIBULA 2 VW LEFT STAT 07/12/2024 2:54 PM EST XR ANKLE 3+ VW LEFT STAT 07/12/2024 2 :53 PM EST from Last 3 Months Results * Due to [place] state law, this organization might not be [...] states understanding of procedure being performed: Yes [place] Protocol: ? Procedure consent matches procedure scheduled: [...] ?? supervised splint--Prefabricated walking boot applied by engineering specialist technician with no immediate complication. As attending [...] obtain the completed interpretation. ? Workstation ID: [id number] Narrative 07/12/2024 3:13 PM EST COMPARISON: ??There are no prior studies available for comparison at this time. ?? FINDINGS AND Resulting Agency Comment [id number] Procedure Note Tobias June - 07/12/2024 COMPARISON: [...] possible to obtain thecompleted interpretation. Workstation ID: [id number] us Richard Hurtado MD IMG XR PROCEDURES [...] obtain the completed interpretation. ? Workstation ID: [id number] Narrative 07/12/2024 3:13 PM EST COMPARISON: ??There are no prior studies available for comparison at this time. ?? FINDINGS AND Resulting Agency Comment [id number] Procedure Note Tobias June - 07/12/2024 COMPARISON: [...] possible to obtain thecompleted interpretation. Workstation ID: [id number] us Richard Hurtado MD IMG XR PROCEDURES Final Result from Last 3 Months Insurance [facility] Care Teams Strip Cutter Relationship Specialty Start Date End Date Alexis Ronquillo [address] [place] [phone] PCP - General Internal Medicine 07/12/24
== END 2024-08-02 11:26 | disposition home or self-care (01) ==
LOC: HO.HOSX 11:25
PROVIDERS: Visit Provider Physician Assistant
DX: M79.605 Pain in left leg (principal); M25.572 Pain in left ankle and joints of left foot
CPT/HCPCS: 73590; 73610

== ENCOUNTER → 2024-08-02 11:27 | Outpatient (BNV) | payer OTHER, MEDICAID, SELFPAY | PROVIDERS: Visit Provider Radiology Diagnostic Radiology | DX: M79.89 Other specified soft tissue disorders (principal); M79.605 Pain in left leg | CPT/HCPCS: 73590; 73610 ==